=== PATIENT | male | born 2000 | race Caucasian/White ===

== ENCOUNTER 2024-12-09 12:48 | Emergency (ER) | payer BC, SELFPAY ==
[2024-12-09] VITALS (23 sets, daily range): BP systolic 116–161; BP diastolic 67–98; BMI 21.1
--- NOTE | 2024-12-09 15:19 | ED.GENMED ---
History of Present Illness
<Jaci Parker PA-C - Last Filed: 12/09/24 16:58>
General
Chief Complaint: Musculo-Skeletal Complaint
Source: patient
Exam Limitations: none
Time Seen by Provider: 12/09/24 15:02
History of Present Illness
History of Present Illness:
23yo right hand dominant male with a history of depression presenting for evaluation of left shoulder pain. Patient states he was sitting in bed yesterday afternoon when he started to experience left shoulder pain. He denies any trauma. He was
having continued pain today so went to urgent care. X-rays obtained at urgent care showed a shoulder dislocation and he was sent to the ED for evaluation. He denies any paresthesias. No prior history of shoulder dislocations.
Phy Exam
<Jaci Parker PA-C - Last Filed: 12/09/24 16:58>
General Physical Exam
General Presentation: well appearing and no apparent distress
General Skin: warm and dry
General Habitus: normal
General Mental: alert
ENT Exam
ENT Exam: normocephalic
Neurological Exam
Neurological Exam: alert
Mary Coma Scale
Eye Opening: Spontaneous
Verbal Response: Oriented
Motor Response: Obeys Commands
GCS Total Score: 15
Musculoskeletal Exam
Musculoskeletal Exam: other (L shoulder: Deformity noted with decreased ROM. No tenderness to palpation of the joint. Sensation intact in axillary region. 2+ radial pulse.)
Skin Exam
Skin Exam: normal color and warm/dry
Psychiatric Exam
Psychiatric Exam: normal mood/affect
Course
<Jaci Parker PA-C - Last Filed: 12/09/24 16:58>
Orders/Labs/Results
Orders:
Orders
12/09/24 12:54
Shoulder, Left, Trauma CR [CR Shoulder, Trauma - Left] Urgent
Comment:
Reason For Exam: pain, urgent care says its dislocated
12/09/24 15:25
Ondansetron Injectable [Zofran] 4 mg IV NOW STA
Propofol [Diprivan] 80 mg IV NOW STA
12/09/24 15:26
ASA Classification Routine
12/09/24 15:43
Shoulder, Left 1 View CR [CR Shoulder - Left 1 View] Urgent
Comment:
Reason For Exam: shoulder dislocation
12/09/24 15:56
ASA Classification Routine
Propofol [Diprivan] 100 mg IV NOW STA
Vital Signs
Initial and Last Documented VS:
Initial Vital Signs
Temp Pulse Resp BP Pulse Ox
98.8 F 79 18 142/94 98
12/09/24 12:50 12/09/24 12:50 12/09/24 12:50 12/09/24 12:50 12/09/24 12:50
Last Documented Vital Signs
Temp Pulse Resp BP Pulse Ox
98.7 F 79 17 120/89 99
12/09/24 16:00 12/09/24 16:30 12/09/24 16:30 12/09/24 16:30 12/09/24 16:30
<Bruce Gordon MD - Last Filed: 12/09/24 15:56>
Orders/Labs/Results
Orders:
Orders
12/09/24 12:54
Shoulder, Left, Trauma CR [CR Shoulder, Trauma - Left] Urgent
Comment:
Reason For Exam: pain, urgent care says its dislocated
12/09/24 15:25
Ondansetron Injectable [Zofran] 4 mg IV NOW STA
Propofol [Diprivan] 80 mg IV NOW STA
12/09/24 15:26
ASA Classification Routine
12/09/24 15:43
Shoulder, Left 1 View CR [CR Shoulder - Left 1 View] Urgent
Comment:
Reason For Exam: shoulder dislocation
12/09/24 15:56
ASA Classification Routine
Propofol [Diprivan] 100 mg IV NOW STA
Vital Signs
Initial and Last Documented VS:
Initial Vital Signs
Temp Pulse Resp BP Pulse Ox
98.8 F 79 18 142/94 98
12/09/24 12:50 12/09/24 12:50 12/09/24 12:50 12/09/24 12:50 12/09/24 12:50
Last Documented Vital Signs
Temp Pulse Resp BP Pulse Ox
98.7 F 79 17 120/89 99
12/09/24 16:00 12/09/24 16:30 12/09/24 16:30 12/09/24 16:30 12/09/24 16:30
Procedures
<Jaci Parker PA-C - Last Filed: 12/09/24 16:58>
Joint/Fracture Reduction
Left Shoulder:
Indication for procedure:: Dislocation
Procedure completed by: Jaci Parker PA-C
Consent form signed: Yes
Joint reduced: with anesthesia sedation (see moderate sedation note)
Injury was: closed
Post reduction exam: stable
Capillary Refill: normal
Normal distal neurovascular exam?: Yes
Peripheral Pulses: radial (left): 2+
<Bruce Gordon MD - Last Filed: 12/09/24 15:56>
Moderate Sedation
ASA Risk Score: Class I
Chart and allergies reviewed: Yes
Consent for anesthesia obtained: Yes
Time out completed (validating right patient & procedure): Yes
Moderate Sedation Start Time(when first medication is given): 15:38
History of difficult intubation: No
Airway free of obstruction: Yes
Patient has a gag reflex: Yes
Patient is able to open mouth: Yes
Patient has no dentures: Yes
Patient has no loose teeth: Yes
Medication administered by Provider during Moderate Sedation: IV Propofol (mg)
Total dose administered: 180
Time drug administered: 15:38
Moderate Sedation Procedure End Time: 15:53
<Jaci Parker PA-C - Last Filed: 12/09/24 16:58>
MDM/Problems Addressed
Differential Diagnosis Includes:
24yoM sent in by urgent care for a shoulder dislocation. Denies trauma. Started having pain while in bed yesterday afternoon. May have had his shoulder in an awkward position. Deformity noted on exam. LUE is neurovascularly intact. Differential
diagnosis: fracture, dislocation
X-rays obtained in triage confirm anterior dislocation. Attempted reduction at bedside although patient reports being too anxious and is requesting sedation. Consent obtained and reduction performed under conscious sedation as above with Dr. Gordon.
Shoulder reduced with abduction and external rotation. Sling placed. Repeat x-rays confirm proper alignment. Patient monitored for 1 hour after sedation. He is stable for discharge. Advised f/u with orthopedics for further care.
<Jaci Parker PA-C - Last Filed: 12/09/24 16:58>
*Critical Care Note
Total Time (30-74mins, 75-104mins- exclusive of procedures): Not Applicable
ED Attending Note
<Jaci Parker PA-C - Last Filed: 12/09/24 16:58>
-
Portions of this chart may have been created with voice recognition software.� Occasional wrong word or��sound alike� substitutions may have occurred due to the inherent limitations of voice recognition software.
<Bruce Gordon MD - Last Filed: 12/09/24 15:56>
ED Attending Note
Patient seen and examined by attending physician: Yes
ED Attending Note:
I have seen and evaluated the patient with a [id number] encounter. I have spoken to the advance practicer provider and involved in the medical history, the physical exam, medical decision making.
Evaluation and management service: agree unless noted differently below.
Results interpretation: agree unless noted differently below.
Focused HPI: 24-year-old male presents with shoulder dislocation. He says he was lying awkwardly in bed and felt pain in his shoulder went to urgent care and was told he had a dislocation. Sent to the ER for evaluation. Denies any fall or trauma
or any other complaints.
Physical exam: Palpable deformity of the left shoulder. Neurovascular exam intact.
Medical Decision Makin-year-old male presents with shoulder dislocation. Reduced under sedation. Placed in a sling. Monitor after sedation and plan for discharge with orthopedic referral.
Discharge Plan
Departure
Patient Disposition: Home (Routine Discharge)
Date of Disposition: 12/09/24
Time of Disposition: 16:52
Patient with high blood pressure during this ER visit?: No
Discharge Problem:
Closed anterior dislocation of left shoulder
Instructions: Shoulder Dislocation (DC), Sedation for procedures in adults - Discharge instructions
Referrals:
Chris Roldan MD [Active] -
Activity Restrictions/Additional Instructions:
Wear sling for immobilization. Take Tylenol and ibuprofen for pain.
Please call tomorrow to schedule a follow-up with orthopedics.
Interventions
Interventions:
*Risk Screen - Suicide Last Done: 12/09/24 12:54
*General Assessment Last Done: 12/09/24 15:21
*Neglect/Abuse Screening Last Done: 12/09/24 12:54
*ED COVID-19 Vaccine History Last Done: 12/09/24 15:21
ED-Musculoskeletal Assessment Last Done: 12/09/24 15:21
Discharge Date and Time
Print Language: INDONESIAN
[2024-12-09] MEDS: DIPRIVAN 100 MG IV (15:38)
[2024-12-09] MEDS: DIPRIVAN 80 MG IV (15:41)
== END 2024-12-09 18:19 | disposition home or self-care (01) ==
LOC: EMR 12:48
PROVIDERS: EMERGENCY PHYSICIAN Emergency Medicine
DX: S43.015A Anterior dislocation of left humerus, initial encounter (principal); X58.XXXA Exposure to other specified factors, initial encounter; F32.A Depression, unspecified
CPT/HCPCS: 99283; 23650; 96374; 96375; 96376; 73020; 73030

== ENCOUNTER 2025-01-16 20:28 | Emergency (ER) | payer BC, SELFPAY ==
[2025-01-16 20:38] VITALS: BP 162/98
[2025-01-16 21:03] VITALS: BMI 24.7
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
[2025-01-16 21:59] VITALS: BP 141/85
== END 2025-01-16 22:06 | disposition home or self-care (01) ==
LOC: EMR 20:28
PROVIDERS: EMERGENCY PHYSICIAN Emergency Medicine
DX: M24.412 Recurrent dislocation, left shoulder (principal)
CPT/HCPCS: 99283; 23650; 73020; 73030

== ENCOUNTER → 2025-02-16 12:58 | Outpatient (REF) | payer BC, MEDICARE, SELFPAY | LOC: RAD 12:58 | PROVIDERS: ATTENDING PHYSICIAN Physician Assistant | DX: M25.512 Pain in left shoulder (principal) | CPT/HCPCS: 23350; 73040; 73222 ==

== ENCOUNTER 2025-04-05 16:32 | Emergency (ER) | payer BC, MEDICARE, SELFPAY ==
[2025-04-05 16:33] VITALS: BP 152/106
--- NOTE | 2025-04-05 17:24 | ED.MUSCINJ ---
HPI-Injury
General
Chief Complaint: Musculo-Skeletal Complaint
Source: patient
Exam Limitations: none
Time Seen by Provider: 04/05/25 17:12
Nursing documentation reviewed up to this point in time: agreed with
History of Present Illness-Injury
Initial Injury comments:
Note:
CHIEF COMPLAINT(S)
Recurrent shoulder dislocation.
HISTORY OF PRESENT ILLNESS
The patient is a 24-year-old male who presented with a recurrent dislocation of the left shoulder. The patient reports that this is at least the third episode of dislocation, with the most recent event occurring approximately one month ago. The
current dislocation occurred when the patient inadvertently ran into a bed and subsequently dislocated the shoulder. The patient mentioned a scar on the arm but is unsure of its origin. During the encounter, the patient expressed willingness to have
the shoulder manipulated and reduced, which was performed successfully.
PHYSICAL EXAM
General: Alert, no acute distress.
Skin: Warm, dry. Scar noted on left arm, origin unknown to the patient.
Musculoskeletal: Left shoulder shows signs of dislocation. The shoulder was manipulated and reduced.
Neurological: Alert and oriented to person, place, time, and situation.
PLAN
- Perform an X-ray to confirm proper alignment of the shoulder post-reduction.
- Advise the patient to keep the shoulder immobilized, avoid wiggling it, and use a sling as prescribed.
- Consider follow-up with an pediatric clinical nurse specialist for further evaluation and management of recurrent dislocations.
DIFFERENTIAL DIAGNOSIS
The Differential Diagnosis includes, in no particular order and is not limited to:
- Recurrent shoulder dislocation
- Anterior shoulder instability
- Rotator cuff tear
- Glenoid labrum injury
- Acromioclavicular joint injury
- Fracture of the humeral head
- Brachial plexus injury
- Adhesive capsulitis
- Subacromial impingement
- Tendinitis of the shoulder
CARE-UPDATE
04/05/25 - 17:56
Noted patients good tolerance of shoulder reduction with intact neurovascular status. Recommend discharge with arm in a sling. Patient advised to avoid any aggressive arm movements. Scheduled follow-up with orthopedics is confirmed.
Disposition:
SUMMARY OF ENCOUNTER
The patient is a 24-year-old male who presented to the emergency department with a recurrent dislocation of the left shoulder. The current dislocation occurred after the patient inadvertently ran into a bed. This is at least the third incident of
such a dislocation, with the last occurrence approximately one month ago. During the visit, the shoulder was successfully manipulated and reduced. An X-ray was ordered to confirm proper alignment post-reduction.
PLAN
- Perform an X-ray to confirm the alignment of the shoulder post-reduction.
- Advise the patient to keep the shoulder immobilized with a sling and avoid any arm movements.
- Recommend follow-up with an pediatric clinical nurse specialist for further evaluation and management of recurrent dislocations.
INDEPENDENT REVIEW OF LABS AND INTERPRETATION OF TESTS
My independent interpretation of the X-ray indicates no signs of fracture and confirms proper alignment of the left shoulder post-reduction.
PATIENT EDUCATION AND COUNSELING
The patient was educated about the importance of immobilizing the shoulder using a sling and given precautions to prevent recurrent dislocations. The patient was also warned about the risks of developing a condition known as 'Divehi shoulder
syndrome' due to inadequate immobilization or rehabilitation.
FOLLOW-UP INSTRUCTIONS
The patient is instructed to schedule a follow-up appointment with an pediatric clinical nurse specialist for further evaluation and management.
MEDICAL DECISION MAKING
- Complexity of Data Reviewed:
- Chronic conditions affecting care: Recurrent shoulder dislocation.
- Differential diagnosis includes anterior shoulder instability, rotator cuff tear, glenoid labrum injury, acromioclavicular joint injury, fracture of the humeral head, brachial plexus injury, adhesive capsulitis, subacromial impingement, tendinitis
of the shoulder.
- Data:
- Category 1: My independent review of the X-ray confirmed proper alignment of the shoulder and ruled out a fracture.
- Risk:
- Consideration of Admission/Observation: Escalation of care including admission/observation was considered given the complexity and risk of the patients presenting complaint. However, ultimately I feel the patient is safe for outpatient management
with close follow-up. Reasoning: Work-up reassuring, does not reveal any acute life/organ threatening processes, patients symptoms well controlled upon reevaluation, reexamination is reassuring, vitals are stable, patient agreeable with discharge,
reliable for follow-up.
DIAGNOSIS
- Left shoulder dislocation, recurrent (ICD-10: S43.006A)
Past History
Past History
ED Past Medical History: Psychiatric (anxiety)
Phy Exam
Physical Exam
Physical Exam:
.
Injury Course
Orders/Labs/Results
Orders:
Orders
04/05/25 16:36
Shoulder, Left, Trauma CR [CR Shoulder, Trauma - Left] Urgent
Comment:
Reason For Exam: pain
04/05/25 17:20
CR Shoulder - Left Min 2 View* Urgent
Comment:
Reason For Exam: post reduction
04/05/25 17:23
Shoulder Immobilizer Left- Tx ONCE
Procedures
Joint/Fracture Reduction
Left Shoulder:
Indication for procedure:: dislocation
Procedure completed by: Sandy
Consent form signed: No
If no, reason: Emergency procedure
Joint reduced: without anesthesia
Injury was: closed
Further treatement: no treatment needed
Post reduction exam: stable
Capillary Refill: normal
Normal distal neurovascular exam?: Yes
Peripheral Pulses: brachial (left): 4+ and radial (left): 4+
*Pulse Oximetry
SaO2: 98
Oxygen Mode of Delivery: Room air
Patient hypoxic: no
*Critical Care Note
Total Time (30-74mins, 75-104mins- exclusive of procedures): Not Applicable
ED Attending Note
-
Portions of this chart may have been created with voice recognition software.� Occasional wrong word or��sound alike� substitutions may have occurred due to the inherent limitations of voice recognition software.
Discharge Plan
Departure
Patient Disposition: Home (Routine Discharge)
Date of Disposition: 04/05/25
Time of Disposition: 17:52
Patient with high blood pressure during this ER visit?: Yes
Condition: Good
Discharge Problem:
Anterior dislocation of left shoulder
Instructions: Shoulder Dislocation (DC), How to Use a Shoulder Sling, BLOOD PRESSURE
Referrals:
NONE,* [Family Provider, Internal Medicine]
Philippe Brambila MD [Active, Orthopedics] - Call in 1-3 days for appt
Interventions
Interventions:
*Risk Screen - Suicide Last Done: 04/05/25 16:33
*General Assessment Last Done: 04/05/25 16:33
*Neglect/Abuse Screening Last Done: 04/05/25 16:33
Discharge Date and Time
Print Language: BURMESE
== END 2025-04-05 18:00 | disposition home or self-care (01) ==
LOC: EMR 16:32
PROVIDERS: EMERGENCY PHYSICIAN Emergency Medicine
DX: M24.412 Recurrent dislocation, left shoulder (principal); W22.03XA Walked into furniture, initial encounter
CPT/HCPCS: 99283; 23650; 73030

== ENCOUNTER 2025-05-28 10:26 | Emergency (ER) | payer BC, MEDICARE, SELFPAY ==
[2025-05-28 10:30] VITALS: BP 166/96
--- NOTE | 2025-05-28 11:28 | ED.GENMED ---
History of Present Illness
General
Chief Complaint: Fall
Source: patient and records
Exam Limitations: none
Time Seen by Provider: 05/28/25 11:19
Nursing documentation reviewed up to this point in time: agreed with
History of Present Illness
History of Present Illness:
24-year-old male with history as noted presents to the ER for evaluation of left shoulder pain�he believes he dislocated shoulder once again (fourth time this year). Patient reports that he was drinking last night and around 11:30 PM after getting
up from a chair he felt lightheaded and passed out. He says that he hit the left side of his head on the ground and sustained an abrasion and bruise around the left eye; he says he noted that his shoulder was dislocated. He says that he went to
sleep and woke up this morning to come to the ER to have his shoulder fixed. He denies any headache or neck pain. Denies any back pain or chest pain/abdominal pain. He denies any other injuries aside from pain in the shoulder and the abrasion to
his face. He is not on any blood thinners. This is notably his fourth visit for left shoulder dislocation in the past year. He does report that he saw an orthopedist after previous visits and was told he likely needed surgery on his shoulder.
Past History
Past History
ED Past Medical History: Psychiatric (anxiety)
Review of Systems
Review of Systems
All Other Systems: ROS reviewed and negative except as documented in HPI and ROS
Respiratory: Denies trouble breathing
Cardiac: Reports syncope; Denies chest pain or palpitations
ABD/GI: Denies abdominal pain
: Denies flank pain
Musculoskeletal: Reports joint pain; Denies neck pain or back pain
Neurological: Denies dizzy or headache
Phy Exam
Physical Exam
Physical Exam:
General: Awake, alert, oriented x3; no acute distress
Head: Normocephalic, patient has mild ecchymosis inferior to the left eye and a minor abrasion lateral to the left orbit
Eyes: Conjunctiva normal, EOMI, pupils equal round and reactive to light bilaterally
Throat: Airway intact, handling secretions
Neck: Trachea midline, supple without meningismus, no cervical spine tenderness, good range of motion without pain
Back: No send trauma to back or flank
Lungs: Clear to auscultation bilaterally, no wheezing, rales, rhonchi
Heart: Regular rate and rhythm, no murmurs, gallops, or rubs
Abd: Soft, non distended, nontender
Neuro: Cranial nerves intact, ambulatory with steady gait, speech fluid, motor and sensory intact�specifically motor and sensory intact in left upper extremity radial, median, ulnar nerve distribution distally
Skin: Abrasion to left face
Extremities: Patient has deformity left shoulder and pain with attempts at motion; rest of extremities appear atraumatic; strong pulses in all extremities
Scores
Heart Failure Risk
Heart Failure Risk Score: Not Applicable
Heart Score for Chest Pain Patients
STEMI patient?: Not applicable
Withdrawal Assessment of Alcohol
Withdrawal Assessment Completed?: Not applicable
Course
Orders/Labs/Results
Orders:
Orders
05/28/25 10:36
CR Shoulder, Trauma - Left Urgent
Comment:
Reason For Exam: fall
05/28/25 11:21
Electrocardiogram (*1) Urgent
Reason for Study: Syncope
EKG- Treatment ONCE
05/28/25 11:27
CR Shoulder - Left Min 2 View* Urgent
Comment:
Reason For Exam: post-reduction
05/28/25 11:36
Alcohol Urgent
CPK [Creatine Phosphokinase] Urgent
Complete Blood Count/With Diff Urgent
Comprehensive Metabolic Panel Urgent
Abnormal Lab Results
05/28/25
11:36
WBC 11.9 H 10^3/uL
(4.8-10.8)
RBC 4.60 L 10^6/uL
(4.70-6.10)
MCH 32.4 H pg
(27.0-31.0)
Absolute Neuts (auto) 10.1 H 10^3/uL
(1.4-6.5)
Absolute Lymphs (auto) 0.9 L 10^3/uL
(1.2-3.4)
Absolute Monos (auto) 0.8 H 10^3/uL
(0.1-0.6)
Neutrophils % 85.2 H %
(42.2-75.2)
Lymphocytes % 7.2 L %
(20.5-51.1)
Sodium 133 L mmol/L
(135-145)
Chloride 97 L mmol/L
(98-107)
Glucose 101 H mg/dl
(70-99)
Creatine Kinase 448 H U/L
(55-170)
05/28/25 11:36
05/28/25 11:36
Vital Signs
Initial and Last Documented VS:
Initial Vital Signs
Temp Pulse Resp BP Pulse Ox
36.8 C 96 16 166/96 98
05/28/25 10:30 05/28/25 10:30 05/28/25 10:30 05/28/25 10:30 05/28/25 10:30
Last Documented Vital Signs
Temp Pulse Resp BP Pulse Ox
36.8 C 77 19 138/94 98
05/28/25 10:30 05/28/25 12:00 05/28/25 12:00 05/28/25 12:00 05/28/25 11:37
Procedures
Splinting/Sling Placement
Left Shoulder:
Procedure completed by: Bruce Gordon MD
Pre-splint extermity exam: neurovascular intact
Type of sling: sling fitted
Normal distal neurovascular exam?: Yes
Joint/Fracture Reduction
Left Shoulder:
Indication for procedure:: shoulder dislocation
Procedure completed by: Bruce Gordon MD
Joint reduced: without anesthesia
Injury was: closed
Further treatement: needs further treatment
Post reduction exam: stable
Capillary Refill: normal
Normal distal neurovascular exam?: Yes
MDM/Problems Addressed
Differential Diagnosis Includes:
Shoulder pain: Fracture, dislocation, sprain
Syncope: Vasovagal, orthostatic/dehydration, arrhythmia, anemia
MDM/Problems Addressed:
24-year-old male presents to the ER for evaluation of left shoulder pain and suspected dislocation. He was intoxicated last night and stood up and had a syncopal event, struck the left side of his head and dislocated his left shoulder. Came in
this morning for treatment. Vitals and exam are as above. X-ray done in triage shows dislocation of the shoulder. Patient was able to tolerate reduction without sedation here as documented procedure note; patient placed in a sling by me. Repeat
x-ray postreduction. Although he does have an abrasion and minor bruise to the face he says that this was a ground-level fall that occurred last night and he has no headache and a normal neurologic assessment�using [place] head CT rule as
guideline no indication for emergent head imaging. No other serious injuries noted. Regarding his syncope will plan to check an EKG and basic lab work. Reassess after the above.
Labs reviewed: Mild leukocytosis likely stress reaction no signs of infection. Chemistry no clinically significant abnormalities. Alcohol negative. Suspect syncope was likely positional/orthostatic in the setting of dehydration with alcohol use
last night. Awaiting post reduction x-ray.
Postreduction x-ray shows appropriate position. Patient was placed in a sling immediately after reduction and advised him to remain in place until he is seen by orthopedist. We did discuss his alcohol use; he feels that he does not have an alcohol
problem and does not drink alcohol regular although I did express my concerns that this is now his second visit in the ER for an alcohol related issue. He declined speaking with [facility]. I urged him to consider stopping alcohol altogether. Stable
for discharge. All questions answered.
*Radiology
Radiology exam reviewed: preliminary read by ED provider and radiology read reviewed
*Pulse Oximetry
SaO2: 98
Oxygen Mode of Delivery: Room air
Patient hypoxic: no (98%)
*EKG
Interpreted by ED Provider?: Yes
Heart Rate: 83
Rate: normal
Rhythm: sinus
[place]: normal axis
Interval: normal interval and normal QT interval
QRS Pattern: normal QRS
Ischemia: no ischemia
*Critical Care Note
Total Time (30-74mins, 75-104mins- exclusive of procedures): Not Applicable
Data Reviewed
Review of Other/Old Records Reveals: Records
Source: patient and records
ED Attending Note
-
Portions of this chart may have been created with voice recognition software.� Occasional wrong word or��sound alike� substitutions may have occurred due to the inherent limitations of voice recognition software.
Discharge Plan
Departure
Patient Disposition: Home (Routine Discharge)
Date of Disposition: 05/28/25
Time of Disposition: 12:44
Patient with high blood pressure during this ER visit?: Yes
Discharge Problem:
Closed dislocation of left shoulder, Syncope
Instructions: Shoulder Dislocation (DC)
Prescriptions:
No Action
sertraline [Zoloft] 100 mg Tablet
100 mg PO DAILY
Referrals:
Beto Owens MD [Active, Orthopedics] - Call in 1-3 days for appt
Activity Restrictions/Additional Instructions:
Thank you for visiting the Emergency Department at [facility].
1. Please schedule a follow up appointment as directed. Call first thing tomorrow morning to make an appointment.
2. If indicated, please take your medications as instructed and indicated on discharge paperwork.
3. If any of your symptoms do not improve, or persist, or become more severe within 6-12 hours, please return to the emergency department for further care.
4. Please return to the emergency department if you develop a headache, neck pain/stiffness, fever greater than 100.4F, chest pain, shortness of breath, persistent nausea, vomiting, slurred speech, difficulty walking, numbness/tingling, weakness,
signs of infection or any other symptoms that are worrisome to you.
Please call [phone] if you have any questions.
Interventions
Interventions:
*Risk Screen - Suicide Last Done: 05/28/25 10:30
*General Assessment Last Done: 05/28/25 10:30
*Neglect/Abuse Screening Last Done: 05/28/25 10:30
*ED- Fall Risk Assessment Last Done: 05/28/25 11:45
*ED COVID-19 Vaccine History Last Done: 05/28/25 10:30
*ED Influenza Vaccine History Last Done: 05/28/25 10:30
ED-Musculoskeletal Assessment Last Done: 05/28/25 11:37
ED- Neurological Assessment Last Done: 05/28/25 11:39
ED-Skin Assessment Last Done: 05/28/25 11:40
Discharge Date and Time
Print Language: CAMBODIAN
[2025-05-28 11:29] VITALS: BMI 19.3
[2025-05-28 11:36] VITALS: BP 157/101
[2025-05-28 11:59] LABS: Hematocrit 42.2 % (39.0-52.0); Hemoglobin 14.9 g/dL (13.0-18.0); Mean Corp Hgb Conc. 35.3 g/dL (33.0-37.0); Mean Corpuscular Volume 91.7 fL (80.0-94.0); Nucleated Red Blood Cells % 0 % (-); Platelet Count 242 10^3/uL (130-400); Red Cell Dist. Width 12.6 % (11.5-14.5)
[2025-05-28 12:00] VITALS: BP 138/94
[2025-05-28 12:13] LABS: ALT (SGPT) 21 U/L (0-50); AST (SGOT) 27 U/L (17-59); Albumin 4.8 g/dl (3.5-5.0); Alkaline Phosphatase 73 U/L (38-126); Blood Urea Nitrogen 11 mg/dl (9-20); Calcium 9.7 mg/dl (8.4-10.2); Carbon Dioxide 28 mmol/L (22-30); Chloride 97 mmol/L (98-107); Estimated Creatinine Clearance 122 ml/min; Glucose 101 mg/dl (70-99); Potassium 3.8 mmol/L (3.5-5.1); Sodium 133 mmol/L (135-145); Total Protein 7.7 g/dl (6.3-8.2); eGFR > 60.00
[2025-05-28 12:47] VITALS: BP 155/96
== END 2025-05-28 13:15 | disposition home or self-care (01) ==
LOC: EMR 10:26
PROVIDERS: EMERGENCY PHYSICIAN Emergency Medicine
DX: M24.412 Recurrent dislocation, left shoulder (principal); W18.30XA Fall on same level, unspecified, initial encounter; R03.0 Elevated blood-pressure reading, without diagnosis of hypertension; F41.9 Anxiety disorder, unspecified
CPT/HCPCS: 99284; 23650; 73030; 80053; 82077; 82550; 85025; 93005

== ENCOUNTER 2025-06-04 09:50 | Emergency (ER) | payer BC, MEDICARE, SELFPAY ==
[2025-06-04 09:52] VITALS: BP 156/96
--- NOTE | 2025-06-04 11:05 | ED.GENMED ---
History of Present Illness
General
Chief Complaint: Musculo-Skeletal Complaint
Source: patient
Exam Limitations: none
Time Seen by Provider: 06/04/25 10:33
History of Present Illness
History of Present Illness:
Note:
CHIEF COMPLAINT(S)
Recurrent shoulder dislocation.
HISTORY OF PRESENT ILLNESS
The patient is a 24-year-old male who presents with a recurrent dislocated shoulder. He reports that upon waking up today, he realized his shoulder was dislocated, despite not recalling any specific incident that might have caused it, such as a
fall. The patient suspects he may have slept on it wrong. He mentions a similar episode that occurred approximately a week ago, for which he had sought care and the shoulder was repositioned. At that time, no alcohol was involved, and he states he
has reduced his alcohol consumption significantly. He reports no other symptoms at present.
PHYSICAL EXAM
General: Alert, no acute distress.
Skin: Healing ecchymosis on the shoulder, healing abrasion on left face. Warm, dry. Superficial healing scratches to left forearm
Head: Normocephalic, atraumatic.
Neck: Supple, trachea midline.
Eye, Ears, Nose, Mouth, and Throat: Oral mucosa moist.
Cardiovascular: Normal peripheral perfusion, No edema.
Respiratory: Respirations are non-labored.
Gastrointestinal: Abdomen nondistended.
Back: Normal range of motion, Normal alignment.
Musculoskeletal: Shoulder with empty glenoid on lateral aspect, limited range of motion of the left shoulder due to dislocation but remarkably he is able to flex the shoulder. Normal distal pulses.
Neurological: Alert and oriented to person, place, time, and situation, No focal neurological deficit observed.
Psychiatric: Cooperative, appropriate mood & affect.
SOCIAL DETERMINANTS AFFECTING HEALTH
The patient reports he has issues with his mother, who believes he is not contributing enough to the household and accuses him of intentional negligence because of past substance abuse. The patient acknowledges a history of use of methamphetamine,
which he denies currently using, and admits to smoking cannabis. 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 He also reports feeling judged by his family,
who expect negative outcomes for him, contributing to a stressful home environment.
SOCIAL HISTORY
The patient works in a restaurant but finds the pay insufficient. He has a history of methamphetamine use, now discontinued, and currently uses cannabis. The patient acknowledges past heavy alcohol use but has since reduced consumption.
PLAN
1. Reduction of shoulder dislocation through traction, followed by providing advice on shoulder positioning and use of a sling to prevent further dislocations.
2. Recommendation to follow up with orthopedic services for further evaluation and discussion of physical therapy to strengthen the shoulder muscles.
3. Recommended lifestyle adjustments to prevent shoulder dislocation during sleep and daily activities.
4. Suggested exploring other job opportunities that may provide more stable income and potentially less anxiety-provoking work environments.
DIFFERENTIAL DIAGNOSIS
The Differential Diagnosis includes, in no particular order and is not limited to:
1. Recurrent shoulder dislocation due to ligament laxity
2. Subacromial bursitis
3. Rotator cuff pathology
4. Glenoid labrum tear
5. Acromioclavicular joint separation
6. Brachial plexus injury
7. Anterior shoulder instability
8. Glenohumeral osteoarthritis
9. Shoulder impingement syndrome
10. Supraspinatus tendon tear.
Disposition:
SUMMARY OF ENCOUNTER
24-year-old male presented again with a recurrent shoulder dislocation. The patient has a history of multiple dislocations in the past. He expressed concerns regarding home issues and dissatisfaction with his job. After a detailed discussion about
the next steps, the patient was receptive to the advice given. A sling was applied to immobilize the shoulder.
DISPOSITION
Discharge.
ASSESSMENT
Recurrent shoulder dislocation likely due to ligament laxity.
PLAN
- Reduction of shoulder dislocation through traction.
- Advise on proper shoulder positioning.
- Use of a sling to prevent further dislocations.
- Strong recommendation for follow-up with orthopedic services for further evaluation and discussion of physical therapy to strengthen shoulder muscles.
FOLLOW-UP INSTRUCTIONS
Please call to schedule a follow-up visit with orthopedic services to address the recurrent shoulder dislocation and evaluate the need for physical therapy.
MEDICAL DECISION MAKING
-Complexity of Data Reviewed: Chronic conditions affecting care including, history of recurrent shoulder dislocation. Differential Diagnosis includes recurrent shoulder dislocation due to ligament laxity, subacromial bursitis, rotator cuff
pathology, glenoid labrum tear, acromioclavicular joint separation, brachial plexus injury, anterior shoulder instability, glenohumeral osteoarthritis, shoulder impingement syndrome, supraspinatus tendon tear.
Care significantly affected by Social Determinants of Health: The patient reported stress from family conflicts and dissatisfaction with current employment, impacting overall health and wellbeing.
DIAGNOSIS
Recurrent shoulder dislocation (ICD-10: M24.411)
Past History
Past History
ED Past Medical History: Psychiatric (anxiety)
Phy Exam
Physical Exam
Physical Exam:
.
Course
Orders/Labs/Results
Orders:
Orders
06/04/25 09:57
CR Shoulder - Left Min 2 View* Urgent
Comment:
Reason For Exam: pain
Vital Signs
Initial and Last Documented VS:
Initial Vital Signs
Temp Pulse Resp BP Pulse Ox
98.2 F 88 20 156/96 97
06/04/25 09:52 06/04/25 09:52 06/04/25 09:52 06/04/25 09:52 06/04/25 09:52
Last Documented Vital Signs
Temp Pulse Resp BP Pulse Ox
98.2 F 88 20 156/96 97
06/04/25 09:52 06/04/25 09:52 06/04/25 09:52 06/04/25 09:52 06/04/25 09:52
Procedures
Joint/Fracture Reduction
Left Shoulder:
Indication for procedure:: dislocation
Procedure completed by: Dr Kelley
If no, reason: Emergency procedure
Joint reduced: without anesthesia
Injury was: closed
Further treatement: needs re-check only
Post reduction exam: stable
Capillary Refill: normal
Normal distal neurovascular exam?: Yes
*Pulse Oximetry
SaO2: 97
Oxygen Mode of Delivery: Room air
Patient hypoxic: no
*Critical Care Note
Total Time (30-74mins, 75-104mins- exclusive of procedures): Not Applicable
ED Attending Note
-
Portions of this chart may have been created with voice recognition software.� Occasional wrong word or��sound alike� substitutions may have occurred due to the inherent limitations of voice recognition software.
Discharge Plan
Departure
Patient Disposition: Home (Routine Discharge)
Date of Disposition: 06/04/25
Time of Disposition: 11:07
Patient with high blood pressure during this ER visit?: Yes
Discharge Problem:
Anterior shoulder dislocation
Instructions: Shoulder Dislocation, BLOOD PRESSURE
Prescriptions:
No Action
sertraline [Zoloft] 100 mg Tablet
100 mg PO DAILY
Referrals:
NONE,* [Family Provider, Internal Medicine]
Ugo Zamora MD [Active, Orthopedics]
Activity Restrictions/Additional Instructions:
Please see orthopedics in the next 1 week for follow-up and reevaluation. Keep arm in sling when possible and try to prop yourself up while sleeping to avoid your arm over your head. It is important to follow-up as your dislocations can recur.
Physical therapy for muscle strengthening may also be necessary. Return for numbness, tingling, worsening pain or any other concerns.
Interventions
Interventions:
*Risk Screen - Suicide Last Done: 06/04/25 09:52
*General Assessment Last Done: 06/04/25 09:52
*Neglect/Abuse Screening Last Done: 06/04/25 09:52
Discharge Date and Time
Print Language: ROMANSH
== END 2025-06-04 12:17 | disposition home or self-care (01) ==
LOC: EMR 09:50
PROVIDERS: EMERGENCY PHYSICIAN Emergency Medicine
DX: M24.412 Recurrent dislocation, left shoulder (principal); F41.9 Anxiety disorder, unspecified; F12.90 Cannabis use, unspecified, uncomplicated
CPT/HCPCS: 99283; 23650; 73030